=== PATIENT | female | born 1995 | race Two or more races ===

== ENCOUNTER 2017-03-12 13:11 | Emergency (ER) | payer SELFPAY ==
--- NOTE | 2017-03-12 13:20 | EDPHY ---
H & P Stated Complaint: Lightheaded and dizzy with LT UE numbness since yesterday HPI/ROS: CHIEF COMPLAINT: Rapid heart rate HISTORY OF PRESENT ILLNESS: The patient is a 21 y/o female arriving with her complaining of numbness in her left arm. Yesterday, she noticed numbness and tingling in her left arm. The numbness and tingling were present throughout the day and still present this morning. On arrival she became tachycardic into the 170s and tachypneic. She denies neck pain, vomiting, diarrhea, or other associated symptoms. She denies any trauma, recent illness, or other precipitating factors. She denies any motor deficits. REVIEW OF SYSTEMS: A ten point review of systems was performed and is negative with the exception of the items mentioned in the HPI. Past medical history: 1. 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 Vital signs reviewed. HR 107. Eyes: Pupils equal and round, no conjunctival injection, no discharge. Anicteric. ENT, Mouth: Mucous membranes are moist, no oropharyngeal erythema or edema. Neck: No lymphadenopathy, supple. Respiratory: Lungs are clear to auscultation; no wheezes, rales, or rhonchi. Cardiovascular: Regular rate and rhythm; no murmur, rub, or gallop. Gastrointestinal: Abdomen is soft and nontender, no masses or organomegaly, bowel sounds normal. Skin: Warm and dry, no rashes on exposed skin, normal color. Back: Nontender to palpation over the thoracolumbar spine. No CVAT. Extremities: No lower extremity edema, no calf tenderness or swelling. Neurological: Alert and oriented. Moving all four extremities easily and equally. Cranial nerves II through XII are examined and are intact (visual acuity not tested). Strength is 5 over 5 bilaterally with testing of all major motor groups. Sensation is intact to light touch over all 4 extremities. Deep tendon reflexes are 2+ in the biceps and knees bilaterally. Gait is normal. [id number] is performed accurately. Psychiatric: Normal affect. - Personal History LMP (Females 10-55): 8-14 Days Ago Current Tetanus/Diphtheria Vaccine: Yes Current Tetanus Diphtheria and Acellular Pertussis (TDAP): Yes - Medical/Surgical History Hx Asthma: No Hx Chronic Respiratory Disease: No Hx Diabetes: No Hx Cardiac Disease: No Hx Renal Disease: No Hx Cirrhosis: No Hx Alcoholism: No Hx HIV/AIDS: No Hx Splenectomy or Spleen Trauma: No Other PMH: Vag delivery 1 mo ago - Social History Smoking Status: Never smoked Constitutional: Initial Vital Signs Temperature (C) 36.6 C 03/12/17 13:12 Heart Rate 107 H 03/12/17 13:12 Respiratory Rate 16 03/12/17 13:12 Blood Pressure 119/78 03/12/17 13:12 O2 Sat (%) 100 03/12/17 13:12 O2 Delivery Mode Room Air O2 (L/minute) 2 Allergies/Adverse Reactions: No Known Allergies Allergy (Unverified 03/14/17 17:31) Medical Decision Making ED Course/Re-evaluation: On initial exam the patient was in SVT on the cardiac cath rn. She was tachycardic into the 170s and tachypneic. The episode ended spontaneously and her heart rate has slowed. Twelve lead EKG performed after her arrival shows sinus tachycardia with rate around 130.. Plan for labs and observation. She received lorazepam one mg IV and one liter iv NS. I reassessed the patient at 1430 and found her heart rate reduced to 87. She reports that her arm feels better. I suspect that she may have paroxysmal episodes of SVT. Her presentation could also be anxiety. I do not suspect CVA, TIA, multiple sclerosis as cause of her hand/arm numbness and do not recommend brain imaging at this time. There is nothing to suggest infection in the history or physical exam. I discussed my impressions with her and reviewed return precautions. She agrees to this course of action. - Data Points Laboratory Results: Laboratory Results 03/12/17 13:30 03/12/17 13:30 Medications Given: Discontinued Medications Sodium Chloride (Ns) 1,000 mls @ 0 mls/hr IV ONCE ONE PRN Reason: Wide Open Stop: 03/12/17 13:47 Last Admin: 03/12/17 13:30 Dose: 1,000 mls Lorazepam (Ativan Injection) 1 mg IVP EDNOW ONE Stop: 03/12/17 13:31 Last Admin: 03/12/17 13:38 Dose: 1 mg Departure - Departure Disposition: Home, Routine, Self-Care Clinical Impression: SVT (supraventricular tachycardia), Anxiety Condition: Good Instructions: Supraventricular Tachycardia (ED), Anxiety (ED) Additional Instructions: 1. Please carry your EKG with you in the event you have another episode. If you have another episode try bearing down as if you were having a bowel movement or splash water on your face. 2. Follow-up with your primary care provider for recurrent symptoms. 3. Return to the ED for prolonged rapid heart rate, lightheadedness, chest pain , trouble breathing or other worsening of condition. Referrals: NONE *PRIMARY CARE P,. [Primary Care Provider] - As per Instructions Report Scribed for: Sue Cruz Report Scribed by: Jazmine Davila Date of Report: 03/12/17 Time of Report: 13:37 Physician Review and Approval Statement: 03/12/17 13:20 Portions of this note were transcribed by the adjunct faculty for medical terminology. I, Dr. Sue Cruz, personally performed the history, physical exam, and medical decision- making; and confirmed the accuracy of the information in the transcribed note.
[2017-03-12] MEDS ORDERED: ADENOSINE 6 MG/2 ML VIAL ONE (13:25)
[2017-03-12] MEDS ORDERED: LORazepam 2 MG/ML INJ IVP ONE (13:30)
--- NOTE | 2017-03-12 13:32 | CPEKG ---
Heart Rate: 129 RR Interval: 465 P-R Interval: 140 QRSD Interval: 92 QT Interval: 316 QTC Interval: 463 P [place]: 78 QRS [place]: 33 T Wave [place]: 50 EKG Severity - OTHERWISE NORMAL ECG - EKG Impression: SINUS TACHYCARDIA Electronically Signed By: Sue Cruz 12-Mar-2017 15:26:15
[2017-03-12 13:46] LABS: PLATELET COUNT 411 10^3/uL (150-400)
[2017-03-12] MEDS ORDERED: NS 1,000 ML IV ONE (13:46)
[2017-03-12 15:26] VITALS: BP 112/77; PULSE 82; RESP 19; TEMP 98.4; O2SAT 100
== END 2017-03-12 15:29 | disposition home or self-care (01) ==
DX: I47.1 Supraventricular tachycardia (principal); F41.9 Anxiety disorder, unspecified
CPT/HCPCS: 96374; J0153; J2060

== ENCOUNTER 2017-03-14 17:25 | Emergency (ER) | payer SELFPAY ==
[2017-03-14 17:33] VITALS: TEMP 98.2
--- NOTE | 2017-03-14 19:14 | CPEKG ---
Heart Rate: 88 RR Interval: 682 P-R Interval: 156 QRSD Interval: 88 QT Interval: 380 QTC Interval: 460 P [place]: 55 QRS [place]: 21 T Wave [place]: 25 EKG Severity - NORMAL ECG - EKG Impression: SINUS RHYTHM Electronically Signed By: Sue Cruz 14-Mar-2017 21:19:02
--- NOTE | 2017-03-14 19:22 | EDPHY ---
H & P Stated Complaint: L arm tingling, tachypnea, tachycardia - Personal History LMP (Females 10-55): 15-21 Days Ago Current Tetanus/Diphtheria Vaccine: Yes Current Tetanus Diphtheria and Acellular Pertussis (TDAP): Yes - Medical/Surgical History Hx Asthma: No Hx Chronic Respiratory Disease: No Hx Diabetes: No Hx Cardiac Disease: No Hx Renal Disease: No Hx Cirrhosis: No Hx Alcoholism: No Hx HIV/AIDS: No Hx Splenectomy or Spleen Trauma: No Other PMH: Vag delivery 1 mo ago, - Social History Smoking Status: Never smoked Time Seen by Provider: 03/14/17 19:10 HPI/ROS: CHIEF COMPLAINT: "My heart was racing " HISTORY OF PRESENT ILLNESS: 21-year-old female generally healthy in the ER complaining of palpitations tachycardia, now resolved. She was seen the ER 2 days ago for similar complaints, told that she may have SVT and she experienced similar to place cold water on her face. This afternoon while she was experiencing similar symptoms she splashed cold water face notes that she then became asymptomatic. Time I interview her she is asymptomatic. [facility] and they are planning on getting the patient scheduled for follow-up with a pearl glue drier. At no point did she experience: Syncope, near syncope, headache, chest pain, dyspnea. PRIMARY CARE PROVIDER: [facility] REVIEW OF SYSTEMS: A ten point review of systems was performed and is negative with the exception of the items mentioned in the HPI PAST MEDICAL & SURGICAL HISTORY: SOCIAL HISTORY: Nonsmoker. No illicit drug use. No cocaine use. No exogenous estrogen use. FAMILY HISTORY: No family history of premature coronary artery disease, no family history of coagulopathic disorder. PHYSICAL EXAM (Prior to examination, patient consented to physical exam, hands were washed and my usual and customary physical exam procedures followed) 1) GENERAL: Well-developed, well-nourished, alert and oriented. Appears to be in no acute distress. 2) HEAD: Normocephalic, atraumatic 3) HEENT: Pupils equal, round, reactive to light bilaterally. Sclera anicteric. 4) NECK: Full range of motion, no meningeal signs. Negative carotid bruit 5) LUNGS: Clear auscultation bilaterally, no wheezes, no rhonchi, no retractions. 6) HEART: Regular rate and rhythm, no murmur, no heave, no gallop. 7) ABDOMEN: No guarding, no rebound, no focal tenderness, negative McBurney's, negative Hodge's, negative Rovsing's, negative peritoneal sign, negative Homans no palpable cord 8) MUSCULOSKELETAL: Moving all extremities, no focal areas of tenderness, no obvious trauma. No peripheral edema or discoloration. 9) BACK: No CVA tenderness, no midline vertebral tenderness, no fluctuance, no step-off, no obvious trauma, no visual or palpable abnormality. 10) SKIN: No rash, no petechiae. 11) Psychiatric: Patient is oriented X 3, there is no agitation. DIFFERENTIAL DIAGNOSIS: In no particular include but limited to cardiac dysrhythmia, SVT, pulmonary embolus (Aishwarya,Eric Shu) Constitutional: Initial Vital Signs Temperature (C) 36.8 C 03/14/17 17:31 Heart Rate 106 H 03/14/17 17:31 Respiratory Rate 32 H 03/14/17 17:31 Blood Pressure 136/78 H 03/14/17 17:31 O2 Sat (%) 99 03/14/17 17:31 O2 Delivery Mode Room Air Allergies/Adverse Reactions: No Known Allergies Allergy (Unverified 03/14/17 17:31) Medical Decision Making ED Course/Re-evaluation: 7:20 p.m.: Old medical records reviewed. Case discussed with secondary supervising physician Dr. Sue Cruz who is familiar with the patient. 8:20 p.m.: Patient was re-evaluated with serial examinations. She is noted to be tachycardic and tachypneic at triage. While in the emergency department her heart rate has been in the 80s, respiratory rate 12-15, maintain normal saturations. She has had no episodes of tachycardia or SVT while in the emergency department. Reviewed her laboratory studies including normal chest x- ray, D-dimer, troponin. At this time I do not think that further diagnostic studies or hospitalization or emergent cardiology consultation is indicated. However I recommend she continue to follow up with Cardiology as directed by her primary care provider who is arranging cardiology follow-up as she may necessitate Holter monitoring or further diagnostic studies. The meantime she feels comfortable being discharged. Usual and customary discharge precautions instructions provided. (Eric Neff) The patient was evaluated and managed by the physician certified pathology assistant. I have reviewed this chart and I agree with the findings and plan of care as documented , as indicated by my signature. I am the secondary supervising physician. ( Sue Cruz) - Data Points Laboratory Results: Laboratory Results 03/14/17 19:20 03/14/17 19:20 Departure - Departure Disposition: Home, Routine, Self-Care Clinical Impression: Palpitations Condition: Good Instructions: Supraventricular Tachycardia (ED), Heart Palpitations (ED) Additional Instructions: If you develop further episodes are similar symptoms, splashed cold water on her face, if you develop dizziness, chest pain, shortness of breath, return to the ER immediately. Keep your follow-up with cardiology. Referrals: Lizette Dial PA [Primary Care Provider] - As per Instructions Stand Alone Forms: Work Excuse
[2017-03-14 19:32] LABS: PLATELET COUNT 346 10^3/uL (150-400)
[2017-03-14 20:55] VITALS: BP 110/72; PULSE 94; RESP 16; O2SAT 100
== END 2017-03-14 20:55 | disposition home or self-care (01) ==
DX: R00.2 Palpitations (principal)